=== PATIENT | male | born 1970 | race African-American/Black ===

== ENCOUNTER 2020-05-05 04:57 | Emergency (ER) | payer MEDICAID, MEDICARE ==
[~2020-05-05] VITALS: Ht 177.8 cm; Wt 81.8 kg
[~2020-05-05 04:57] MED LIST: AMPH12.52 PO; TRAZ-91 PO; VALP250C44 PO
--- NOTE | 2020-05-05 05:11 | NUR ---
Pt. is fixated on learning about resources within the community. Pt. is dodging questions and instead asking whether [facility] is a good place for "people who are starting up."
--- NOTE | 2020-05-05 05:17 | NUR ---
EDP at bedside assessing pt. Pt. is answering slowly, disorganizedly and hesitant to disclose important information.
[2020-05-05 05:35] VITALS: BP 146/108
== END 2020-05-05 05:37 | disposition home or self-care (01) ==
LOC: ER 04:58
DX: G89.29 Other chronic pain (principal); M25.552 Pain in left hip; F41.9 Anxiety disorder, unspecified; F31.9 Bipolar disorder, unspecified; Z72.89 Other problems related to lifestyle; Z79.899 Other long term (current) drug therapy; Z88.8 Allergy status to other drugs, medicaments and biological substances
CPT/HCPCS: 99281

== ENCOUNTER 2021-01-15 03:19 | Emergency (ER) | payer MEDICAID, OTHER ==
[~2021-01-15] VITALS: Ht 177.8 cm; Wt 81.8 kg
[2021-01-15 03:36] VITALS: BP 144/102
[2021-01-15] MEDS ORDERED: TRAZ-251 PO (04:49)
[2021-01-15] MEDS ORDERED: DIVA500T2 PO (04:49)
[2021-01-15] MEDS ORDERED: NAPR-56 PO (04:49)
[2021-01-15] MEDS ORDERED: ketorolac trometh. 30mg/ml inj. IM ONE (04:50)
== END 2021-01-15 05:29 | disposition home or self-care (01) ==
LOC: ER 03:21
DX: G89.29 Other chronic pain (principal); M25.552 Pain in left hip; F31.9 Bipolar disorder, unspecified; Z98.890 Other specified postprocedural states; Z88.8 Allergy status to other drugs, medicaments and biological substances; Z79.899 Other long term (current) drug therapy
CPT/HCPCS: 73502; 96372; 99283; J1885

== ENCOUNTER 2021-01-25 15:04 | Emergency (ER) | payer OTHER ==
[~2021-01-25] VITALS: Ht 177.8 cm; Wt 78.0 kg
[~2021-01-25 15:04] MED LIST changes: +DIVA500T2 PO; +NAPR-56 PO; +TRAZ-251 PO
[2021-01-25 15:14] VITALS: BP 172/104
== END 2021-01-25 16:16 | disposition home or self-care (01) ==
LOC: ER 15:05
DX: M25.552 Pain in left hip (principal); Z88.8 Allergy status to other drugs, medicaments and biological substances; Z79.899 Other long term (current) drug therapy; Z96.643 Presence of artificial hip joint, bilateral; Z72.89 Other problems related to lifestyle
CPT/HCPCS: 99281

== ENCOUNTER 2021-01-26 02:45 | Emergency (ER) | payer OTHER ==
[~2021-01-26] VITALS: Ht 177.8 cm; Wt 83.6 kg
[2021-01-26 02:52] VITALS: BP 155/108
--- NOTE | 2021-01-26 03:15 | NUR ---
Patient is agitated and speaking rapidly and unable to answer any questions and offers no specific complaints or reason why he came to the hospital. In no apparent distress.
== END 2021-01-26 03:17 | disposition home or self-care (01) ==
LOC: ER 02:46
DX: F15.90 Other stimulant use, unspecified, uncomplicated (principal); F41.9 Anxiety disorder, unspecified; F32.9 Major depressive disorder, single episode, unspecified; F17.200 Nicotine dependence, unspecified, uncomplicated; F29 Unspecified psychosis not due to a substance or known physiological condition; Z00.00 Encounter for general adult medical examination without abnormal findings; Z76.0 Encounter for issue of repeat prescription; Z59.0 Homelessness; Z88.8 Allergy status to other drugs, medicaments and biological substances; Z79.899 Other long term (current) drug therapy; Z72.89 Other problems related to lifestyle
CPT/HCPCS: 99283

== ENCOUNTER → 2021-04-16 | Emergency (ER) | payer MEDICAID, OTHER ==
[~2021-04-16] VITALS: Ht 177.8 cm; Wt 81.0 kg
[~2021-04-16] MED LIST changes: -NAPR-56 PO; +divalproex 250mg tablet, delayed-release PO ONE; +traZODone 50mg tablet PO ONE
[2021-04-16 02:51] VITALS: BP 124/79
== END | disposition home or self-care (01) ==
LOC: ER 02:25
DX: F41.9 Anxiety disorder, unspecified (principal); F31.9 Bipolar disorder, unspecified; Z91.19 Patient's noncompliance with other medical treatment and regimen; Z98.890 Other specified postprocedural states; Z72.89 Other problems related to lifestyle; Z88.8 Allergy status to other drugs, medicaments and biological substances; Z79.899 Other long term (current) drug therapy
CPT/HCPCS: 99283

== ENCOUNTER 2021-05-15 01:00 | Emergency (ER) | payer OTHER ==
[~2021-05-15] VITALS: Ht 177.8 cm; Wt 85.5 kg
[~2021-05-15 01:00] MED LIST changes: -divalproex 250mg tablet, delayed-release PO ONE; -traZODone 50mg tablet PO ONE
[2021-05-15 01:26] VITALS: BP 187/121
== END 2021-05-15 02:30 | disposition home or self-care (01) ==
LOC: ER 01:00
DX: F41.9 Anxiety disorder, unspecified (principal); F15.90 Other stimulant use, unspecified, uncomplicated; Z88.8 Allergy status to other drugs, medicaments and biological substances; Z79.899 Other long term (current) drug therapy; Z72.89 Other problems related to lifestyle; Z59.0 Homelessness
CPT/HCPCS: 99281

== ENCOUNTER 2022-06-18 16:49 | Emergency (ER) | payer SELFPAY ==
[~2022-06-18] VITALS: Ht 177.8 cm; Wt 85.5 kg
[2022-06-18 19:53] LABS: BASOPHILS % (AUTO) 0.7 % (0-1); EOSINOPHILS # (AUTO) 0.1 X10'3 (0-0.9); EOSINOPHILS % (AUTO) 1.3 % (0-6); HEMATOCRIT 38.2 % (42.0-52.0); HEMOGLOBIN 12.6 g/dl (14.0-17.9); LYMPHOCYTES # (AUTO) 1.6 X10'3 (1.1-4.8); LYMPHOCYTES % (AUTO) 21.2 % (21-51); MEAN CORPUSCULAR HEMOGLOBIN 24.7 PG (27.0-31.0); MEAN CORPUSCULAR VOLUME 74.8 FL (78-98); MONOCYTES # (AUTO) 0.8 X10'3 (0-0.9); MONOCYTES % (AUTO) 10.5 % (2-12); NEUTROPHILS % (AUTO) 66.3 % (42-75); PLATELET COUNT 409 X10'3 (140-440); RED BLOOD COUNT 5.11 X10'6 (4.70-6.10); RED CELL DISTRIBUTION WIDTH 17.7 % (11.5-14.5); WHITE BLOOD COUNT 7.6 X10'3 (4.5-11.0)
[2022-06-18 20:26] LABS: ALANINE AMINOTRANSFERASE 53 U/L (12-78); ALBUMIN 3.6 G/DL (3.4-5.0); ALBUMIN/GLOBULIN RATIO 0.6 (1.1-1.5); ALKALINE PHOSPHATASE 125 IU/L (46-116); ANION GAP 10 (8-16); ASPARTATE AMINO TRANSFERASE 80 U/L (10-37); BILIRUBIN,TOTAL 0.8 MG/DL (0.1-1.0); BLOOD UREA NITROGEN 16 MG/DL (7-18); BUN/CREATININE RATIO 15.4 (5.4-32.0); CALCIUM 9.4 MG/DL (8.5-10.1); CHLORIDE 100 MMOL/L (99-107); CREATININE 1.04 MG/DL (0.60-1.10); GLUCOSE 96 MG/DL (70-104); POTASSIUM 3.9 MMOL/L (3.5-5.1); SODIUM 137 MMOL/L (135-145); TOTAL CARBON DIOXIDE 27.3 MMOL/L (24-32); TOTAL PROTEIN 9.8 G/DL (6.4-8.2); eGFR > 90 ML/MIN
[2022-06-18 20:29] LABS: ETHANOL < 0.010 GM/DL (0.0-0.010)
[2022-06-18 20:42] LABS: CLARITY,URINE SLIGHTLY CLOUDY (Clear); COLOR,URINE YELLOW (Yellow); GLUCOSE, URINE NEGATIVE (Neg); KETONES,URINE TRACE mg/dl (Neg); LEUKOCYTE ESTERASE ,URINE NEGATIVE (Neg); NITRITES, URINE NEGATIVE (Neg); OCCULT BLOOD,URINE TRACE-INTACT (Neg); PROTEIN,URINE NEGATIVE (Neg); UROBILINOGEN,URINE 0.2 E.U/dL (0.2-1.0)
[2022-06-18 20:58] LABS: UA COLLECTION TYPE URINAL
[2022-06-18 21:00] LABS: BACTERIA,URINE FEW /HPF (Neg); MUCUS STRANDS NONE SEEN /LPF (Neg); RBC,URINE 0-2 /HPF (0-2); SQUAMOUS EPITHELIAL CELL,UR FEW /LPF (FEW); TRANSITIONAL EPI CELLS,URINE FEW /HPF; WBC,URINE 0-4 /HPF (0-4)
[2022-06-18] MEDS ORDERED: DIVA500T2 PO (22:10)
[2022-06-18] MEDS ORDERED: TRAZ-251 PO (22:10)
[2022-06-18 22:21] LABS: URINE AMPHETAMINE SCREEN POSITIVE (Neg); URINE BARBITUATE SCREEN NEGATIVE (Neg); URINE BENZODIAZEPINES SCREEN NEGATIVE (Neg); URINE CANNABINOID SCREEN NEGATIVE (Neg); URINE COCAINE SCREEN NEGATIVE (Neg); URINE METHADONE SCREEN NEGATIVE (Neg); URINE OPIATE SCREEN NEGATIVE (Neg); URINE PHENCYCLIDINE SCREEN NEGATIVE (Neg)
--- NOTE | 2022-06-19 01:21 | NUR ---
Assumed care of patient after receiving report. Patient sleeping quietly on gurney without apparent distress.
--- NOTE | 2022-06-19 01:51 | NUR ---
[facility] FAXED
--- NOTE | 2022-06-19 03:29 | NUR ---
Rounded on patient, sleeping quietly on gurney without apparent distress.
--- NOTE | 2022-06-19 05:27 | NUR ---
pt. awake voded per urinal. Resting quietly on gurney, denies any discomfort when asked.
[2022-06-19 06:18] VITALS: BP 130/88
[2022-06-19] MEDS ORDERED: dextroamphetamine/amphetamine 5mg tablet PO SCH (08:00)
[2022-06-19] MEDS ORDERED: divalproex sodium 500mg tablet.DR PO SCH (08:00)
--- NOTE | 2022-06-19 09:30 | NUR ---
Patient resting quietly throughout shift. Ornamental [employer] Operator went in to give morning medications and chatted with patient, performed assessment, etc. Pt cooperative and conversant.
[2022-06-19] MEDS ORDERED: DIVA500T2 PO (16:12)
[2022-06-19] MEDS ORDERED: AMPH30TA3 PO (16:12)
[2022-06-19] MEDS ORDERED: TRAZ-251 PO (16:12)
[2022-06-19] MEDS ORDERED: traZODone 50mg tablet PO SCH (21:00)
== END 2022-06-19 16:25 | disposition home or self-care (01) ==
LOC: ER 16:49
DX: R45.851 Suicidal ideations (principal); Z20.822 Contact with and (suspected) exposure to COVID-19; F31.9 Bipolar disorder, unspecified; F15.10 Other stimulant abuse, uncomplicated; Z88.8 Allergy status to other drugs, medicaments and biological substances; Z79.899 Other long term (current) drug therapy
CPT/HCPCS: 36415; 80053; 80305; 80320; 81001; 84443; 85025; 87811; 99285

== ENCOUNTER 2022-06-23 00:36 | Emergency (ER) | payer MEDICAID ==
[~2022-06-23] VITALS: Ht 172.7 cm; Wt 81.8 kg
[~2022-06-23 00:36] MED LIST changes: -TRAZ-91 PO; -VALP250C44 PO
[2022-06-23 01:34] VITALS: BP 151/96
== END 2022-06-23 09:35 | disposition left against medical advice (07) ==
LOC: ER 00:36
DX: Z00.00 Encounter for general adult medical examination without abnormal findings (principal); Z53.21 Procedure and treatment not carried out due to patient leaving prior to being seen by health care provider

== ENCOUNTER 2022-06-28 17:18 | Emergency (ER) | payer MEDICAID ==
[~2022-06-28] VITALS: Ht 177.8 cm; Wt 85.0 kg
[2022-06-28 17:28] VITALS: BP 164/109
[2022-06-28] MEDS ORDERED: ketorolac trometh inj. 60 MG/2 ML VIAL IM ONE (18:15)
[2022-06-28] MEDS ORDERED: HYDROcodone/acetaminophen 5mg/325mg tablet PO ONE (18:15)
== END 2022-06-28 18:31 | disposition home or self-care (01) ==
LOC: ER 17:19
DX: M25.552 Pain in left hip (principal); F31.9 Bipolar disorder, unspecified; F15.10 Other stimulant abuse, uncomplicated; Z88.8 Allergy status to other drugs, medicaments and biological substances; Z79.899 Other long term (current) drug therapy
CPT/HCPCS: 96372; 99283; J1885

== ENCOUNTER 2022-06-28 21:19 | Emergency (ER) | payer MEDICAID ==
[~2022-06-28] VITALS: Ht 177.8 cm; Wt 85.5 kg
[2022-06-28 21:27] VITALS: BP 163/110
== END 2022-06-29 05:06 | disposition left against medical advice (07) ==
LOC: ER 21:19
DX: Z00.00 Encounter for general adult medical examination without abnormal findings (principal); Z53.21 Procedure and treatment not carried out due to patient leaving prior to being seen by health care provider